=== PATIENT | female | born 1940 | race Caucasian/White ===

== ENCOUNTER 2018-02-11 20:29 | Inpatient (IN) ==
[2018-02-11] MEDS ORDERED: 0.9 % Sodium Chloride 1,000 ML IVC ONE (23:43)
[2018-02-11] MEDS ORDERED: 0.9 % Sodium Chloride 1,000 ML IVC SCH (23:45)
[2018-02-11] MEDS ORDERED: 0.9 % Sodium Chloride 1,000 ML ONE (23:58)
[2018-02-11] MEDS ORDERED: D5% in Water 1,000 ML IVC PRN (23:59)
[2018-02-11] MEDS ORDERED: Ondansetron 4 MG/2 ML VIAL IVP PRN (23:59)
[2018-02-11] MEDS ORDERED: Acetaminophen 325 MG TABLET PO PRN (23:59)
[2018-02-11] MEDS ORDERED: Dextrose Gel 15 GM/37.5 ML TUBE PO PRN ×2 (23:59)
[2018-02-11] MEDS ORDERED: Naloxone 0.4 MG/ML INJ IVP PRN (23:59)
[2018-02-11] MEDS ORDERED: *HR* Dextrose 50 % in Water (Syg) 50 ML SYRINGE IVP PRN (23:59)
--- NOTE | 2018-02-12 00:12 | Internal Med History&Physical ---
<Geovanni Barajas - Last Filed: 02/12/18 02:06> Date of Encounter: 02/12/18 Time of Encounter: 00:08 Internal Medicine - H&P: HPI Chief complaint: Abnormal labs Admitted From: Long-term Nursing Facility History of present illness: Ms. López is a 77 year old female with a PMH of recently diagnosed right upper lobe mass suspicious for bronchogenic carcinoma, Alzheimer's dementia, diet controlled diabetes mellitus type 2, COPD, CVA without residual deficits, hypertension, hyperlipidemia, and remote tobacco dependence who was transferred from a nursing facility secondary to severe hypercalcemia. Calcium level was 14.7 and repeat level was 14.2 prior to arrival. Patient reports associated nausea, constipation, and room spinning sensation. Last BM was 3 days ago and patient reports dysuria, urinary frequency, and urinary urgency. She reports intermittent SOB at rest and denies home oxygen dependence. Patient reports she was sent to SNF after recent hospitalization for right lung biopsy at [facility]. She states her daughter also has health issues and they have been taking care of each other since she moved in with her in July 2017 due to worsening Alzheimer's dementia. However, patient reports there are several other family members also living there and she is unable to return to her daughter's house due to the chaotic living situation. Past Med Surg Social Fam HX - Past Medical History Medical history: diabetes (diet controlled), hyperlipidemia, hypertension, kidney stones, other Additional medical history: Alzheimers, hypercalcemia, Mass in upper right lobe of lung, diverticulosis Psychiatric history: anxiety, panic disorder - Past Surgical History Surgical History: other Additional surgical history: Lung biopsy, right kidney removed - Social History Smoking Status: Former smoker (quit 40 years ago after smoking 23 years) Smokeless Tobacco Status: No Alcohol use: none Drug use: none Occupational status: retired Current living situation: ECF - Family History Father Living Status: Cause of : Metastatic cancer Hx Family Cancer: Yes ("All over") Mother Living Status: Hx Family Neurologic Disorders: Yes (CVA) Internal Medicine - H&P: Meds Aspirin [Adult Aspirin] 81 mg PO DAILY 01/25/18 [History] Atorvastatin [Lipitor] 40 mg PO HS 01/25/18 [History] Cyanocobalamin (Vitamin B-12) [B-12] 2,500 mcg SL DAILY 01/25/18 [History] Donepezil HCl [Aricept] 5 mg PO HS 01/25/18 [History] Metoprolol Tartrate [Lopressor] 25 mg PO DAILY 01/25/18 [History] Omeprazole [PriLOSEC] 20 mg PO BID 01/25/18 [History] ALPRAZolam [Xanax 0.5 MG Tablet] 0.5 mg PO BID PRN 02/11/18 [History] Cholecalciferol (Vitamin D3) [Vitamin D] 2 tab PO DAILY 02/11/18 [History] Ondansetron ODT [Zofran ODT] 4 mg SL Q6H PRN 02/11/18 [History] Potassium Chloride [Klor-Con 10] 10 meq PO DAILY 02/11/18 [History] 3 Allergy/AdvReac Type Severity Reaction Status Date / Time No Known Allergies Allergy Verified 01/25/18 19:31 All Systems PM: A 10-system review of systems was performed and is negative for pertinent findings except as documented above in the HPI. - Constitutional Constitutional: chills, fatigue, malaise, weakness, weight loss, no fever(s), no weight gain - EENT Eyes: no blurry vision, no diplopia Nose, mouth and throat: no dental pain ("I'm unable to afford dentures"), no sinus pain, no sore throat - Cardiovascular Cardiovascular ROS IM: dyspnea, dyspnea on exertion, no chest pain, no diaphoresis, no orthopnea, no palpitations - Respiratory Respiratory: cough (occasional), dyspnea, dyspnea on exertion, no hemoptysis, no wheezing, no chest congestion, no excessive phlegm production, no pain with cough - Gastrointestinal Gastrointestinal: constipation, nausea, no abdominal pain, no diarrhea, no heartburn, no hematemesis, no hematochezia, no melena, no vomiting - Genitourinary Genitourinary: dysuria, urinary frequency, urinary urgency, no hematuria - Musculoskeletal Musculoskeletal ROS IM: no arthralgias, no back pain, no numbness, no tingling - Integumentary Integumentary IM: no erythema, no rash, no skin ulcer - Neurological Neurological ROS: confusion, disequilibrium, dizziness, no focal weakness, no frequent falls, no headache(s), no numbness, no tremor(s) (chin), no weakness - Psychiatric Psychiatric: anxiety, panic attacks, no depression - Endocrine Endocrine IM: fatigue, no polydipsia, no polyphagia, no polyuria - Hematologic/Lymphatic Hematologic/Lymphatic: no easy bleeding, no easy bruising - Constitutional Vitals: Temp Pulse Resp BP Pulse Ox 99.4 F 69 18 151/77 100 02/11/18 23:26 02/11/18 23:26 02/11/18 23:26 02/11/18 23:26 02/11/18 23:26 General appearance: Present: cooperative, A&O X 3, pleasant, no acute distress, answers questions appropriately - Head Head exam: Present: atraumatic, normocephalic - Eye Eye exam: Present: PERRL, conjuntiva pink, sclera anicteric Pupils: Present: PERRL - ENT ENT exam: Present: mucous membranes moist, normal oropharynx - Expanded ENT Exam Teeth exam: Present: edentulous - Neck Neck exam general surgery: Present: supple, trachea midline. Absent: lymphadenopathy - Respiratory Respiratory exam: Present: CTAB. Absent: accessory muscle use, rales, rhonchi, wheezes - Cardiovascular Cardiovascular exam: Present: RRR, +S1, +S2. Absent: diastolic murmur, gallop, rubs, systolic murmur - GI/Abdominal GI/Abdominal exam: Present: guarding (voluntary), normal bowel sounds, soft, tenderness (RUQ/ RLQ), no peritoneal signs. Absent: distended - Extremities Exam Extremities exam: Present: normal capillary refill, normal inspection, warm, radial pulses palpable and symmetrical. Absent: calf tenderness, cyanotic, pedal edema - Back Exam Back exam: Present: normal inspection. Absent: paraspinal tenderness, tenderness - Neurological Exam Neurological exam: Present: CN II-XII intact, oriented X3, no focal deficits. Absent: pronater drift, facial droop, speech deficit - Expanded Neurological Exam Neurological exam expanded: Present: tremor (chin tremor at rest) Patient oriented to: Present: person, place, time Speech: Present: fluid speech Cranial Nerves: EOM's intact PM: Normal Sensory exam: lower extremity light touch: Normal, upper extremity light touch: Normal Neuro motor strength exam: LUE: 4, RUE: 4, LLE: 4, RLE: 4 Coma Scale Eye Opening: Spontaneous Coma Scale Motor Response: Obeys Commands Coma Scale Verbal Response: Oriented Coma Scale Total: 15 - Psychiatric Psychiatric exam: Present: anxious, normal affect - Skin Skin exam: Present: dry, intact, normal color, warm Internal Med - H&P Results - Pulse Oximetry Interpretation Digit-Finger O2 Sat by Pulse Oximetry: 100 (On room air) - Impressions XR/XR chest 1V portable IMPRESSION: 1. Atelectasis versus scarring within the right mid lung. 2. Faint density within the right upper lobe corresponds to pulmonary nodule recently identified on CT chest January 26, 2018. D/ / Zoltan Delvalle MD / Zoltan Delvalle MD Interpreting Provider: Zoltan Delvalle MD - Assessment and plan (1) Mass of upper lobe of right lung Current Visit: Yes Status: Acute Assessment and plan: Patient with recently diagnosed right upper lobe mass suspicious for bronchogenic carcinoma. Patient was sent to SNF after recent hospitalization for right lung biopsy at [facility]. CXR revealed atelectasis versus scarring within the right mid lung. Faint density within the right upper lobe corresponds to pulmonary nodule recently identified on CT chest 01/26/18. CT chest 01/26/18 revealed 2 cm lobular lesion in the right apex with no definite right hilar adenopathy. Indeterminate sub 6 mm right lower lobe subpleural pulmonary nodule. Right lung mass biopsy results records requested from [facility] Continue Duonebs and monitor SpO2 levels Oncology consulted Full code status (2) Hypercalcemia Current Visit: Yes Status: Acute Assessment and plan: Patient was transferred from a nursing facility secondary to severe hypercalcemia. Calcium level was 14.7 and repeat level was 14.2 prior to arrival. Ionized calcium level 1.81 PTH level 124.1 on 01/25/18 Repeat PTH level, PTHrP, Vitamin D levels pending Continue IVF Calcitonin 240units subQ and Zoledronic acid 4mg IV ordered Repeat calcium level q4h Oncology consulted (3) CHELITA (acute kidney injury) Current Visit: Yes Status: Acute Assessment and plan: SrCr level 2.41, baseline is around 0.76 Continue IVF Repeat BMP in AM Consider nephrology consult if CHELITA does not resolve with IV hydration (4) Urinary tract infection Current Visit: Yes Status: Acute Assessment and plan: UA reveals trace leukocyte estrase, moderate amorphous sediment Previous urine cultures from 01/25/18 and 02/05/18 were grossly contaminated and urine cultures were unable to be properly interpreted. Urine culture pending Continue Rocephin 1g IV daily (Day 1) Qualifiers: Urinary tract infection type: acute cystitis Hematuria presence: with hematuria Qualified Code(s): N30.01 - Acute cystitis with hematuria (5) Anemia Current Visit: Yes Status: Chronic Assessment and plan: HGB level 10.8, down from 12.5 on 01/25/18 CT abd/plv revealed severe sigmoid diverticulosis without diverticulitis. No signs of bleeding Continue monitoring Qualifiers: Anemia type: iron deficiency Iron deficiency anemia type: unspecified iron deficiency Qualified Code(s): D50.9 - Iron deficiency anemia, unspecified (6) Alzheimer's dementia Current Visit: Yes Status: Chronic Assessment and plan: patient moved in with her in July 2017 due to worsening Alzheimer's dementia. However, patient reports there are several other family members also living there and she is unable to return to her daughter's house due to the chaotic living situation. 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 Qualifiers: Alzheimer's disease onset: unspecified onset Dementia behavioral disturbance: without behavioral disturbance Qualified Code(s): G30.9 - Alzheimer's disease, unspecified; F02.80 - Dementia in other diseases classified elsewhere without behavioral disturbance (7) Anxiety and depression Current Visit: Yes Status: Chronic Assessment and plan: Continue home meds (8) 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 Current Visit: No Status: Chronic Assessment and plan: Continue monitoring (9) Vertigo Current Visit: Yes Status: Acute Assessment and plan: Patient reports room spinning sensation Emerson Meclizine TID prn (10) Hypertension Current Visit: No Status: Chronic Assessment and plan: Continue home meds Qualifiers: Hypertension type: essential hypertension Qualified Code(s): I10 - Essential (primary) hypertension (11) HLD (hyperlipidemia) Current Visit: No Status: Chronic Assessment and plan: Continue home meds Qualifiers: Hyperlipidemia type: unspecified Qualified Code(s): E78.5 - Hyperlipidemia , unspecified (12) COPD (chronic obstructive pulmonary disease) Current Visit: No Status: Chronic Assessment and plan: Not in acute exacerbation Continue Duonebs Qualifiers: COPD type: unspecified COPD Qualified Code(s): J44.9 - Chronic obstructive pulmonary disease, unspecified (13) DM type 2 (diabetes mellitus, type 2) Current Visit: No Status: Chronic Assessment and plan: Diet controlled DM Type 2 HGB a1c level 5.3 on 02/04/18 Accucheck ACHS Low dose SSI prn Continue ADA diet, mechanically altered diet due to edentulous status Qualifiers: Diabetes mellitus alf insulin use: without manager terminal use Diabetes mellitus complication status: without complication Qualified Code(s): E11.9 - Type 2 diabetes mellitus without complications (14) Constipation Current Visit: Yes Status: Acute Assessment and plan: Last BM 3 days ago Encourage ambulation Senna Plus ordered Qualifiers: Constipation type: unspecified constipation type Qualified Code(s): K59.00 - Constipation, unspecified (15) DVT prophylaxis Current Visit: Yes Status: Acute Assessment and plan: Heparin subQ TID - Time Spent With Patient Total time spent is greater than 50% in coordination of care (as documented) at patient's floor/unit and/or counseling patient: <Sharri Mack - Last Filed: 02/12/18 02:46> Date of Encounter: 02/12/18 Internal Medicine - H&P: HPI History of present illness: Ms. López is a 77 year old female All Systems PM: A 10-system review of systems was performed and is negative for pertinent findings except as documented above in the HPI. - Constitutional Vitals: Temp Pulse Resp BP Pulse Ox 99.4 F 69 18 151/77 100 02/11/18 23:26 02/11/18 23:26 02/11/18 23:26 02/11/18 23:26 02/11/18 23:26 - Attending Attestation The patient was seen and examined by me. She is a 77-year-old woman who presents with constipation, numbness, tingling, generalized malaise and is found to have a calcium level of 14.7 with elevated ionized calcium as well. She has a known lung mass which has been biopsied however the records are not available as of this moment. She is notably dehydrated as well. She is a rather poor historian. Physical exam is remarkable for generalized pallor and dry mucous membranes. She has acute kidney injury stage III. We will give aggressive IV fluid resuscitation, monitor calcium levels every 4 hours, administer 1 dose of calcitonin salmon at 4u/kg and zoledronic acid 4mg IVP for hypercalcemia likely related to lung malignancy; primary hyperparathyroidism is also on the differential. Ongoing calcium monitoring is advised given the current aggressive treatment protocol. 1,25 and 25-OH Vit D levels, PTH and PTHrP levels should be checked. She will benefit from oncology evaluation. She is also anemic with no signs of GI bleeding at this time. Dementia renders her poor historian. Long-term prognosis is guarded. Rest of care per resident's note. - Time Spent With Patient Total time spent is greater than 50% in coordination of care (as documented) at patient's floor/unit and/or counseling patient:
[2018-02-12] MEDS: Insulin LISPRO 300 UNITS/3 ML VIAL SQ SCH ×5 (01:50→21:25)
[2018-02-12] MEDS: Sennosides/Docusate Sodium TABLET PO SCH ×3 (02:00→21:01)
[2018-02-12] MEDS ORDERED: Zoledronic Acid (Zometa) 4 MG in 0.9 % Sodium Chloride 100 ML IV ONE (02:15)
[2018-02-12] MEDS ORDERED: Calcitonin-Salmon, Synthetic 400 UNIT/2 ML VIAL SQ ONE (02:16)
[2018-02-12] MEDS: 0.9 % Sodium Chloride 1,000 ML IVC SCH ×2 (03:10→11:51)
[2018-02-12] MEDS: Ipratropium/Albuterol Neb 3 ML IH SCH ×4 (05:23→21:20)
[2018-02-12] MEDS: *HR* Heparin 5,000 UNIT/ML VIAL SQ SCH ×3 (06:12→21:02)
[2018-02-12 06:58] LABS: Hematocrit 30.1 % (35.3-44.9); Mean Corpuscular HGB Conc 33.2 g/dL (31.6-35.5); Mean Corpuscular Hemoglobin 30.2 pg (28.0-33.3); Mean Corpuscular Volume 90.9 fL (83.0-100.0); Mean Platelet Volume 10.2 fL (9.4-12.4); Platelet Count 204 K/mcL (140-400); Red Blood Count 3.31 M/mcL (3.82-4.97); Red Cell Distribution Width 13.2 % (11.5-14.5)
[2018-02-12 07:08] LABS: Prothrombin Time 10.9 Seconds (9.4-12.1)
[2018-02-12 07:10] LABS: Activated Partial Thrombo Time 28.9 Seconds (26.0-36.0)
[2018-02-12 07:17] LABS: Albumin 3.3 g/dL (3.5-5.7); Calcium 11.3 mg/dL (8.6-10.3); Phosphorous 3.7 mg/dL (2.7-4.5); Potassium 4.2 mEq/L (3.5-5.1)
[2018-02-12] MEDS: Cyanocobalamin (B-12) 1,000 MCG TABLET PO SCH (08:06)
[2018-02-12] MEDS: Cholecalciferol (D-3) 1,000 UNIT TABLET PO SCH (08:06)
[2018-02-12] MEDS: Aspirin Enteric Coated 81 MG Tablet PO SCH (08:06)
[2018-02-12] MEDS: cefTRIAXone 1,000 MG in Water for inj. (sterile) 20 ML 10 ML IVP SCH (08:07)
[2018-02-12] MEDS: ALPRAZolam 0.5 MG TABLET PO PRN ×2 (08:10→21:01)
--- NOTE | 2018-02-12 13:38 | Oncology Inp Consult Note ---
Date of Encounter: 02/12/18 Time of Encounter: 13:00 Assessment and Plan (1) Hyperparathyroidism Status: Acute Assessment and plan: She has acute on chronic hypercalcemia related to hyperparathyroidism. This is not secondary to her malignancy given her elevated PTH. Would recommend consultation with endocrinology/ENT for consideration of either bisphosphonate- based therapy, cinacalcet or parathyroidectomy. Given her comorbidities, perhaps a medical approach may be prudent for the time being. (2) Mass of upper lobe of right lung Status: Acute Assessment and plan: She appears to have an early-stage probable lung cancer. We will establish follow-up as an outpatient. At that juncture, we will recommend PET/CT imaging for staging purposes and will likely pursue SBRT as primary therapy if she is found to have localized disease. I will setup an office appointment with me later this coming week. We will otherwise sign off. Please do not hesitate to call with any concerns or questions. - Data of Consult Patient: new to practice Requesting Physician: Rj Stewart Primary Care Provider: Geovanni Payton MD - Consult Narrative Reason for consult: 1245 History of present illness: Ms. López is a 77 year old female with a newly diagnosed right apical lung nodule concerning for bronchogenic carcinoma. Patient underwent CT imaging of the chest, abdomen and pelvis 01/26/2018 which revealed a 2 similar right apical lung mass. The patient was transferred [facility] where biopsy was performed per her recollection. She does not know the results from this biopsy. We do not have records for review. She is discharged to a correction facility for rehabilitation and possibly long-term placement given social issues at her home. She re-presented to the emergency department last night with hypercalcemia at 14.7 with associated nausea, constipation, and vertigo. Last BM was 3 days ago. She has been hydrated overnight with improvement of her calcium. PTH is elevated consistent with hypercalcemia of hyperparathyroidism. We are asked to consult and aid in management of the lung mass. Past Med Surg Social Fam HX - Past Medical History Medical history: diabetes (diet controlled), hyperlipidemia, hypertension, kidney stones, other Additional medical history: Alzheimers, hypercalcemia, Mass in upper right lobe of lung, diverticulosis Psychiatric history: anxiety, panic disorder - Past Surgical History Surgical History: other Additional surgical history: Lung biopsy, right kidney removed - Social History Smoking Status: Former smoker (quit 40 years ago after smoking 23 years) Smokeless Tobacco Status: No Alcohol use: none Drug use: none - Family History Father Living Status: Cause of : Metastatic cancer Hx Family Cancer: Yes ("All over") Mother Living Status: Hx Family Neurologic Disorders: Yes (CVA) Medications and Allergies Aspirin [Adult Aspirin] 81 mg PO DAILY 01/25/18 [History] Atorvastatin [Lipitor] 40 mg PO HS 01/25/18 [History] Cyanocobalamin (Vitamin B-12) [B-12] 2,500 mcg SL DAILY 01/25/18 [History] Donepezil HCl [Aricept] 5 mg PO HS 01/25/18 [History] Metoprolol Tartrate [Lopressor] 25 mg PO DAILY 01/25/18 [History] Omeprazole [PriLOSEC] 20 mg PO BID 01/25/18 [History] ALPRAZolam [Xanax 0.5 MG Tablet] 0.5 mg PO BID PRN 02/11/18 [History] Cholecalciferol (Vitamin D3) [Vitamin D] 2 tab PO DAILY 02/11/18 [History] Ondansetron ODT [Zofran ODT] 4 mg SL Q6H PRN 02/11/18 [History] Potassium Chloride [Klor-Con 10] 10 meq PO DAILY 02/11/18 [History] 3 Allergy/AdvReac Type Severity Reaction Status Date / Time No Known Allergies Allergy Verified 01/25/18 19:31 All systems: reviewed and no additional remarkable complaints except as stated Constitutional: Present: anorexia, daytime sleepiness, fatigue, weight loss Eyes: Present: blurry vision Ears: Present: as per HPI Nose, mouth and throat: Present: disequilibrium, dry mouth Cardiovascular: Present: as per HPI Respiratory: Present: dyspnea on exertion Gastrointestinal: Present: abdominal pain, bloating, constipation Musculoskeletal: Present: arthralgias, muscle cramps Neurological: Present: abnormal gait, disequilibrium Oncology - Exam - Constitutional Vitals: Temp Pulse Resp BP Pulse Ox 99.2 F 59 14 133/71 100 02/12/18 11:11 02/12/18 11:11 02/12/18 11:11 02/12/18 11:11 02/12/18 11:11 General appearance: cooperative, no acute distress - Head Head exam: Present: atraumatic, normal inspection, normocephalic - Eye Eye exam: Present: normal appearance, conjuntiva pink, sclera anicteric Pupils: Present: PERRL - ENT ENT exam: Present: mucous membranes moist, normal oropharynx - Neck Neck exam: Present: full ROM, normal inspection - Respiratory Respiratory exam: Present: CTAB - Cardiovascular Cardiovascular exam: Present: RRR, systolic murmur - GI/Abdominal GI/Abdominal exam: Present: normal bowel sounds, soft - Extremities Exam Extremities exam: Present: normal inspection - Neurological Exam Neurological exam: Present: alert, CN II-XII intact, no focal deficits Oncology - Results Labs: 3 02/12/18 02/12/18 02/12/18 10:49 06:30 06:30 WBC RBC Hgb Hct MCV MCH MCHC RDW Plt Count MPV PT 10.9 INR 1.0 APTT 28.9 Sodium 138 Potassium 4.2 Chloride 110 H Carbon Dioxide 24 BUN 34 H Creatinine 2.20 H Est GFR ( Amer) 26 L Est GFR (Non-Af Amer) 22 L BUN/Creatinine Ratio 15 Glucose 103 Calculated Osmolality 294 Calcium 11.5 H 11.3 H Phosphorus 3.7 Albumin 3.3 L PTH Intact 3 02/12/18 02/12/18 02/12/18 06:30 02:32 02:32 WBC 4.7 RBC 3.31 L Hgb 10.0 L Hct 30.1 L MCV 90.9 MCH 30.2 MCHC 33.2 RDW 13.2 Plt Count 204 MPV 10.2 PT INR APTT Sodium Potassium Chloride Carbon Dioxide BUN Creatinine Est GFR ( Amer) Est GFR (Non-Af Amer) BUN/Creatinine Ratio Glucose Calculated Osmolality Calcium 11.7 H Phosphorus Albumin PTH Intact 146.[address] OF THE ABDOMEN AND PELVIS WITHOUT CONTRAST; CT OF THE CHEST WITHOUT CONTRAST 01/26/2018 3:02 pm FINDINGS: Chest: Mediastinum: No mass or adenopathy. Trace pericardial fluid. Normal size of heart and thoracic aorta. Calcified right precarinal lymph nodes. Lungs/pleura: Slight bibasilar atelectasis. Less than 6 mm subpleural nodule laterally and inferiorly in the right lower lobe. Trace left pleural effusion. Small amount of ground-glass opacity in the left lower lobe and left upper lobe worrisome for pneumonia. Lobular noncalcified pulmonary nodule posteriorly in the right apex measuring 16.1 x 12.4 mm on axial image 20 and 20.8 mm in height on coronal image 65. Few adjacent daughter nodules. Strands in density extend to the posterior pleural surface. Slight bullous changes. Soft Tissues/Bones: No destructive bony lesion. Mild old appearing compression fracture of T11. No soft tissue abnormality. No worrisome breast lesion. No axillary adenopathy. Abdomen/Pelvis: Organs: Liver is normal in appearance without worrisome focal lesion. Small hepatic cyst anteriorly in the subcapsular lateral segment measuring less than 8 mm in size. Several small calcified gallstones without findings of acute inflammation. Right nephrectomy surgically absent. Left kidney appears normal. 1 cm fatty lesion in the upper pole of the remaining left kidney consistent with angiomyolipoma. Other abdominal organs appear normal. Right adrenal gland remains. GI/Bowel: Large amount of ingested food in the stomach. Severe sigmoid diverticulosis without diverticulitis. Scattered diverticula in the left colon. Normal appendix and terminal ileum. Pelvis: Uterus remains and appears normal for age. Normal appearance of the urinary bladder. Trace amount of free pelvic fluid is seen bilaterally. No adenopathy. Peritoneum/Retroperitoneum: No mass, adenopathy, or ascites. Normal size of the aorta. Bones/Soft Tissues: No destructive bony lesion or significant soft tissue abnormality. CT/CT chest wo con IMPRESSION: 2 cm lobular lesion in the right apex having the appearance of a bronchogenic carcinoma. No definite right hilar adenopathy. No pleural effusion. Ground-glass opacity within the left upper and lower lobes worrisome for pneumonia. Trace left pleural effusion. Indeterminate sub 6 mm right lower lobe subpleural pulmonary nodule. No worrisome finding in the remaining left kidney or urinary bladder. 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 Cholelithiasis without finding of acute cholecystitis. Severe sigmoid diverticulosis without diverticulitis. Trace amount of free pelvic fluid. Consult Discharge Plan - Plan Referrals: Geovanni Payton MD [Primary Care Provider] -
--- NOTE | 2018-02-12 19:42 | Event Note ---
Date of Encounter: 02/12/18 Time of Encounter: 11:00 Patient seen and evaluated by nocturnalist earlier this morning and also by myself Patient's hypercalcemia correcting with IV fluids Recommendations for ENT consult due to acute on chronic hypercalcemia related to her hyperparathyroidism Hematology/oncology consulted for probable lung cancer with recommendations for follow-up and workup including PET/CT imaging as an outpatient
[2018-02-13 03:31] LABS: Bilirubin,Urine Negative (Negative); Blood,Urine Negative (Negative); Clarity,Urine Clear (Clear); Color,Urine Yellow (Yellow); Glucose,Urine (UA) Normal (Normal); Ketones,Urine Negative (Negative); Leukocyte Esterase,Urine Negative (Negative); Nitrite,Urine Negative (Negative); PH,Urine 6.5 pH Units (5.0-8.0); Protein,Urine Negative (Neg-Trace); Specific Gravity,Urine 1.012 (1.010-1.025); Urobilinogen,Urine Normal (Normal)
[2018-02-13] MEDS: Ipratropium/Albuterol Neb 3 ML IH SCH ×2 (03:56→10:50)
[2018-02-13] MEDS: *HR* Heparin 5,000 UNIT/ML VIAL SQ SCH ×3 (05:21→21:42)
[2018-02-13 05:28] LABS: Hemoglobin 9.5 g/dL (11.5-15.4); Mean Corpuscular HGB Conc 32.8 g/dL (31.6-35.5); Mean Corpuscular Hemoglobin 30.2 pg (28.0-33.3); Mean Corpuscular Volume 92.1 fL (83.0-100.0); Mean Platelet Volume 9.8 fL (9.4-12.4); Platelet Count 174 K/mcL (140-400); Red Blood Count 3.15 M/mcL (3.82-4.97); Red Cell Distribution Width 13.3 % (11.5-14.5)
[2018-02-13 06:34] LABS: Calcium 11.7 mg/dL (8.6-10.3); Potassium 3.8 mEq/L (3.5-5.1)
[2018-02-13] MEDS: Insulin LISPRO 300 UNITS/3 ML VIAL SQ SCH ×4 (08:01→21:33)
[2018-02-13] MEDS: ALPRAZolam 0.5 MG TABLET PO PRN ×2 (08:02→21:38)
[2018-02-13] MEDS: Cholecalciferol (D-3) 1,000 UNIT TABLET PO SCH (08:02)
[2018-02-13] MEDS: Aspirin Enteric Coated 81 MG Tablet PO SCH (08:02)
[2018-02-13] MEDS: Cyanocobalamin (B-12) 1,000 MCG TABLET PO SCH (08:02)
[2018-02-13] MEDS: Sennosides/Docusate Sodium TABLET PO SCH ×2 (08:02→21:37)
[2018-02-13] MEDS: cefTRIAXone 1,000 MG in Water for inj. (sterile) 20 ML 10 ML IVP SCH (08:04)
--- NOTE | 2018-02-13 09:44 | Internal Med Progress Note ---
Date of Encounter: 02/13/18 Time of Encounter: 11:00 - Assessment and plan (1) Hypercalcemia Current Visit: Yes Status: Acute Assessment and plan: Patient was transferred from a nursing facility secondary to severe hypercalcemia. Calcium level 11.7 this morning from 12.3 yesterday and 14.7 on admission PTH level 124.1 on 01/25/18 Will restart IV fluids (2) Mass of upper lobe of right lung Current Visit: Yes Status: Acute Assessment and plan: Patient with recently diagnosed right upper lobe mass suspicious for bronchogenic carcinoma. Patient was sent to [facility] after recent hospitalization for right lung biopsy at [place]. CXR revealed atelectasis versus scarring within the right mid lung. Faint density within the right upper lobe corresponds to pulmonary nodule recently identified on CT chest 01/26/18. CT chest 01/26/18 revealed 2 cm lobular lesion in the right apex with no definite right hilar adenopathy. Indeterminate sub 6 mm right lower lobe subpleural pulmonary nodule. Right lung mass biopsy results records requested from [place] Continue Duonebs and monitor SpO2 levels Oncology consulted with recommendations for PET/CT imaging (3) CHELITA (acute kidney injury) Current Visit: Yes Status: Acute Assessment and plan: SrCr level 2.26, baseline is around 0.76 Will restart IV fluids and monitor creatinine Will continue to monitor renal function (4) Urinary tract infection Current Visit: Yes Status: Acute Assessment and plan: Urinalysis is negative so we will discontinue IV antibiotics Qualifiers: Urinary tract infection type: acute cystitis Hematuria presence: with hematuria Qualified Code(s): N30.01 - Acute cystitis with hematuria (5) DM type 2 (diabetes mellitus, type 2) Current Visit: No Status: Chronic Assessment and plan: Diet controlled DM Type 2 HGB a1c level 5.3 on 02/04/18 Accucheck ACHS Low dose SSI prn Continue ADA diet, mechanically altered diet due to edentulous status Qualifiers: 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 use: without half-way use Diabetes mellitus complication status: without complication Qualified Code(s): E11.9 - Type 2 diabetes mellitus without complications (6) Hypertension Current Visit: No Status: Chronic Assessment and plan: Continue home meds Qualifiers: Hypertension type: essential hypertension Qualified Code(s): I10 - Essential (primary) hypertension (7) Anxiety and depression Current Visit: Yes Status: Chronic Assessment and plan: Continue home meds (8) Alzheimer's dementia Current Visit: Yes Status: Chronic Assessment and plan: patient moved in with her in July 2017 due to worsening Alzheimer's dementia. However, patient reports there are several other family members also living there and she is unable to return to her daughter's house due to the chaotic living situation. chamber worker consulted Qualifiers: Alzheimer's disease onset: unspecified onset Dementia behavioral disturbance: without behavioral disturbance Qualified Code(s): G30.9 - Alzheimer's disease, unspecified; F02.80 - Dementia in other diseases classified elsewhere without behavioral disturbance (9) COPD (chronic obstructive pulmonary disease) Current Visit: No Status: Chronic Assessment and plan: Not in acute exacerbation Continue Duonebs Qualifiers: COPD type: unspecified COPD Qualified Code(s): J44.9 - Chronic obstructive pulmonary disease, unspecified (10) 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 No signs of bleeding Continue monitoring Qualifiers: Anemia type: iron deficiency Iron deficiency anemia type: unspecified iron deficiency Qualified Code(s): D50.9 - Iron deficiency anemia, unspecified (13) Vertigo Current Visit: Yes Status: Acute Assessment and plan: Patient reports room spinning sensation [place] Meclizine TID prn (14) DVT prophylaxis Current Visit: Yes Status: Acute Assessment and plan: Heparin subQ TID - Time Spent With Patient Total time spent is greater than 50% in coordination of care (as documented) at patient's floor/unit and/or counseling patient: - Subjective Interval history: Patient with improved hypercalcemia but still not within normal limits. Patient's acute renal failure without improvement after IV fluids discontinued - Constitutional Vitals: Temp Pulse Resp BP Pulse Ox 98.1 F 77 16 96/54 99 02/13/18 07:33 02/13/18 07:33 02/13/18 07:33 02/13/18 07:33 02/13/18 07:33 General appearance: Present: cooperative, A&O X 3, pleasant, no acute distress, answers questions appropriately - Respiratory Respiratory exam: Present: CTAB. Absent: accessory muscle use, rales, rhonchi, wheezes - Cardiovascular Cardiovascular exam: Present: RRR, +S1, +S2. Absent: diastolic murmur, gallop, rubs, systolic murmur - Psychiatric Psychiatric exam: Present: normal mood - Skin Skin exam: Present: normal color Internal Medicine: Result - Labs CBC & Chem 7: 02/13/18 05:13 02/13/18 05:13 Labs: Short CBC 02/13/18 Range/Units 05:13 WBC 5.2 (4.3-11.1) K/mcL Hgb 9.5 L (11.5-15.4) g/dL Hct 29.0 L (35.3-44.9) % Plt Count 174 (140-400) K/mcL BMP 02/12/18 02/12/18 02/12/18 10:49 15:42 20:31 Sodium Potassium Chloride Carbon Dioxide BUN Creatinine Glucose Calcium 11.5 H 11.7 H 11.6 H 02/12/18 02/13/18 23:08 05:13 Sodium 140 Potassium 3.8 Chloride 110 H Carbon Dioxide 23 BUN 31 H Creatinine 2.26 H Glucose 125 H Calcium 12.3 H 11.7 H Urine 02/13/18 Range/Units 03:21 Urine Color Yellow (Yellow) Urine Clarity Clear (Clear) Urine pH 6.5 (5.0-8.0) pH Units Ur Specific [place] 1.012 (1.010-1.025) Urine Protein Negative (Neg-Trace) mg/dL Urine Glucose (UA) Normal (Normal) mg/dL - ABG Interpretation ABG results: PT/INR, D-dimer PT 10.9 Seconds (9.4-12.1) 02/12/18 06:30 Consult Discharge Plan - Plan Referrals: Geovanni Payton MD [Primary Care Provider] -
[2018-02-13] MEDS ORDERED: Ipratropium/Albuterol Neb 3 ML IH PRN (15:24)
[2018-02-13] MEDS: 0.9 % Sodium Chloride 1,000 ML IVC SCH (19:33)
[2018-02-14] MEDS: *HR* Heparin 5,000 UNIT/ML VIAL SQ SCH ×3 (06:23→20:52)
[2018-02-14] MEDS: Insulin LISPRO 300 UNITS/3 ML VIAL SQ SCH ×4 (08:31→20:51)
[2018-02-14] MEDS: Aspirin Enteric Coated 81 MG Tablet PO SCH (08:48)
[2018-02-14] MEDS: 0.9 % Sodium Chloride 1,000 ML IVC SCH ×2 (08:49→22:25)
[2018-02-14] MEDS: Cholecalciferol (D-3) 1,000 UNIT TABLET PO SCH (09:53)
[2018-02-14] MEDS: Cyanocobalamin (B-12) 1,000 MCG TABLET PO SCH (09:53)
[2018-02-14 11:15] LABS: Basophils % 0.3 %; Eosinophils # 0.3 K/mcL (0.0-0.6); Eosinophils % 4.7 %; Hemoglobin 9.3 g/dL (11.5-15.4); Immature Granulocytes % 0.3 % (0-4); Lymphocytes # 0.6 K/mcL (0.6-4.6); Mean Corpuscular HGB Conc 33.2 g/dL (31.6-35.5); Mean Corpuscular Hemoglobin 30.4 pg (28.0-33.3); Mean Corpuscular Volume 91.5 fL (83.0-100.0); Mean Platelet Volume 10.3 fL (9.4-12.4); Monocytes # 0.4 K/mcL (0.0-1.3); Neutrophils # 4.4 K/mcL (1.6-8.9); Platelet Count 191 K/mcL (140-400); Red Blood Count 3.06 M/mcL (3.82-4.97); Red Cell Distribution Width 13.2 % (11.5-14.5); Segmented Neutrophils % 76.7 %
[2018-02-14 11:18] LABS: Calcium 11.1 mg/dL (8.6-10.3); Potassium 4.4 mEq/L (3.5-5.1)
[2018-02-14] MEDS: Sennosides/Docusate Sodium TABLET PO SCH ×2 (12:16→20:54)
--- NOTE | 2018-02-14 21:08 | Internal Med Progress Note ---
Date of Encounter: 02/14/18 Time of Encounter: 11:00 - Assessment and plan (1) Hypercalcemia Current Visit: Yes Status: Acute Assessment and plan: Patient was transferred from a nursing facility secondary to severe hypercalcemia. Calcium level 11.1 today and 14.7 on admission PTH level 124.1 on 01/25/18 Continue IV fluids (2) Mass of upper lobe of right lung Current Visit: Yes Status: Acute Assessment and plan: Patient with recently diagnosed right upper lobe mass suspicious for bronchogenic carcinoma. Patient was sent to SNF after recent hospitalization for right lung biopsy at [place]. CXR revealed atelectasis versus scarring within the right mid lung. Faint density within the right upper lobe corresponds to pulmonary nodule recently identified on CT chest 01/26/18. CT chest 01/26/18 revealed 2 cm lobular lesion in the right apex with no definite right hilar adenopathy. Indeterminate sub 6 mm right lower lobe subpleural pulmonary nodule. Right lung mass biopsy results records requested from [place] Continue Duonebs and monitor SpO2 levels Oncology consulted with recommendations for PET/CT imaging (3) CHELITA (acute kidney injury) Current Visit: Yes Status: Acute Assessment and plan: SrCr level 1.97, baseline is around 0.76 Will restart IV fluids and monitor creatinine Will continue to monitor renal function (4) Urinary tract infection Current Visit: Yes Status: Acute Assessment and plan: Urinalysis is negative so we will discontinue IV antibiotics Qualifiers: Urinary tract infection type: acute cystitis Hematuria presence: with hematuria Qualified Code(s): N30.01 - Acute cystitis with hematuria (5) DM type 2 (diabetes mellitus, type 2) Current Visit: No Status: Chronic Assessment and plan: Diet controlled DM Type 2 HGB a1c level 5.3 on 02/04/18 Accucheck ACHS Low dose SSI prn Continue ADA diet, mechanically altered diet due to edentulous status Qualifiers: Diabetes mellitus custodial insulin use: without long term care administrator use Diabetes mellitus complication status: without complication Qualified Code(s): E11.9 - Type 2 diabetes mellitus without complications (6) Hypertension Current Visit: No Status: Chronic Assessment and plan: Continue home meds Qualifiers: Hypertension type: essential hypertension Qualified Code(s): I10 - Essential (primary) hypertension (7) Anxiety and depression Current Visit: Yes Status: Chronic Assessment and plan: Continue home meds (8) Alzheimer's dementia Current Visit: Yes Status: Chronic Assessment and plan: patient moved in with her in July 2017 due to worsening Alzheimer's dementia. However, patient reports there are several other family members also living there and she is unable to return to her daughter's house due to the chaotic living situation. spray worker consulted Qualifiers: Alzheimer's disease onset: unspecified onset Dementia behavioral disturbance: without behavioral disturbance Qualified Code(s): G30.9 - Alzheimer's disease, unspecified; F02.80 - Dementia in other diseases classified elsewhere without behavioral disturbance (9) COPD (chronic obstructive pulmonary disease) Current Visit: No Status: Chronic Assessment and plan: Not in acute exacerbation Continue Duonebs Qualifiers: COPD type: unspecified COPD Qualified Code(s): J44.9 - Chronic obstructive pulmonary disease, unspecified (10) 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 No signs of bleeding Continue monitoring Qualifiers: Anemia type: iron deficiency Iron deficiency anemia type: unspecified iron deficiency Qualified Code(s): D50.9 - Iron deficiency anemia, unspecified (13) Vertigo Current Visit: Yes Status: Acute Assessment and plan: Patient reports room spinning sensation [place] Meclizine TID prn (14) DVT prophylaxis Current Visit: Yes Status: Acute Assessment and plan: Heparin subQ TID - Time Spent With Patient Total time spent is greater than 50% in coordination of care (as documented) at patient's floor/unit and/or counseling patient: - Subjective Interval history: Patient with improved hypercalcemia but still not within normal limits. Patient's acute renal failure improving with IV fluids - Constitutional Vitals: Temp Pulse Resp BP Pulse Ox 98.9 F 78 15 138/68 97 02/14/18 20:06 02/14/18 20:06 02/14/18 20:06 02/14/18 20:06 02/14/18 20:06 General appearance: Present: cooperative, A&O X 3, pleasant, no acute distress, answers questions appropriately - Respiratory Respiratory exam: Present: CTAB. Absent: accessory muscle use, rales, rhonchi, wheezes - Cardiovascular Cardiovascular exam: Present: RRR, +S1, +S2. Absent: diastolic murmur, gallop, rubs, systolic murmur - GI/Abdominal GI/Abdominal exam: Present: soft - Extremities Exam Extremities exam: Present: pedal edema - Skin Skin exam: Present: normal color Internal Medicine: Result - Labs CBC & Chem 7: 02/14/18 10:48 02/14/18 10:48 Labs: Short CBC 02/14/18 Range/Units 10:48 WBC 5.7 (4.3-11.1) K/mcL Hgb 9.3 L (11.5-15.4) g/dL Hct 28.0 L (35.3-44.9) % Plt Count 191 (140-400) K/mcL Neutrophils # 4.4 (1.6-8.9) K/mcL BMP 02/14/18 10:48 Sodium 138 Potassium 4.4 Chloride 111 H Carbon Dioxide 23 BUN 25 H Creatinine 1.97 H Glucose 96 Calcium 11.1 H - ABG Interpretation ABG results: PT/INR, D-dimer PT 10.9 Seconds (9.4-12.1) 02/12/18 06:30 Consult Discharge Plan - Plan Referrals: Geovanni Payton MD [Primary Care Provider] -
[2018-02-15] MEDS: *HR* Heparin 5,000 UNIT/ML VIAL SQ SCH ×3 (05:10→19:54)
[2018-02-15] MEDS: Insulin LISPRO 300 UNITS/3 ML VIAL SQ SCH ×4 (07:39→20:49)
[2018-02-15 09:21] LABS: Calcium 10.6 mg/dL (8.6-10.3); Potassium 3.8 mEq/L (3.5-5.1)
[2018-02-15] MEDS: Aspirin Enteric Coated 81 MG Tablet PO SCH (10:08)
[2018-02-15] MEDS: Sennosides/Docusate Sodium TABLET PO SCH ×2 (10:12→19:54)
[2018-02-15] MEDS: 0.9 % Sodium Chloride 1,000 ML IVC SCH (11:55)
[2018-02-15] MEDS: Cholecalciferol (D-3) 1,000 UNIT TABLET PO SCH (11:55)
[2018-02-15] MEDS: Cyanocobalamin (B-12) 1,000 MCG TABLET PO SCH (11:55)
--- NOTE | 2018-02-15 15:36 | Internal Med Progress Note ---
Date of Encounter: 02/15/18 Time of Encounter: 12:20 - Assessment and plan (1) CHELITA (acute kidney injury) Current Visit: Yes Status: Acute Assessment and plan: Improving. Likely due to dehydration and medications. Creatinine 1.6 today. Continue gentle IV hydration. (2) Hypercalcemia Current Visit: Yes Status: Acute Assessment and plan: PTH elevated. PTH related peptide pending. Patient's calcium levels have improved. We will stop vitamin D. Follow up outpatient. Will make referral to endocrinology. (3) Urinary tract infection Current Visit: Yes Status: Ruled-out Assessment and plan: Initially suspected of Possible acute cystitis. However urinalysis and urine culture have been negative so far. No further indications for antibiotics. Qualifiers: Urinary tract infection type: acute cystitis Hematuria presence: with hematuria Qualified Code(s): N30.01 - Acute cystitis with hematuria (4) DM type 2 (diabetes mellitus, type 2) Current Visit: Yes Status: Chronic Assessment and plan: Well controlled. 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 Continue metoprolol. If persistently elevated today, will increase metoprolol dosage to twice daily tomorrow. Qualifiers: Hypertension type: essential hypertension Qualified Code(s): I10 - Essential (primary) hypertension (6) Anxiety and depression Current Visit: Yes Status: Chronic Assessment and plan: Continue home medications. (7) Mass of upper lobe of right lung Current Visit: Yes Status: Acute Assessment and plan: follow-up with oncology as outpatient. (8) Alzheimer's dementia Current Visit: Yes Status: Chronic Assessment and plan: No signs of acute delirium. Continue Aricept Qualifiers: Alzheimer's disease onset: unspecified onset Dementia behavioral disturbance: without behavioral disturbance Qualified Code(s): G30.9 - Alzheimer's disease, unspecified; F02.80 - Dementia in other diseases classified elsewhere without behavioral disturbance (9) COPD (chronic obstructive pulmonary disease) Current Visit: Yes Status: Chronic Assessment and plan: Use bronchodilators as needed. Qualifiers: COPD type: unspecified COPD Qualified Code(s): J44.9 - Chronic obstructive pulmonary disease, unspecified (10) 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 Current Visit: No Status: Chronic (11) HLD (hyperlipidemia) Current Visit: Yes Status: Chronic Assessment and plan: Continue atorvastatin Qualifiers: Hyperlipidemia type: mixed hyperlipidemia Qualified Code(s): E78.2 - Mixed hyperlipidemia (12) Anemia Current Visit: Yes Status: Chronic Assessment and plan: Stable hemoglobin levels. Qualifiers: Anemia type: iron deficiency Iron deficiency anemia type: unspecified iron deficiency Qualified Code(s): D50.9 - Iron deficiency anemia, unspecified (13) Vertigo Current Visit: Yes Status: Acute Assessment and plan: On meclizine as needed. Currently does not report dizziness. PTOT consult and for evaluation. Per the recommendations, patient would benefit from SNF placement. (14) DVT prophylaxis Current Visit: Yes Status: Acute Assessment and plan: On subcutaneous heparin - Time Spent With Patient Total time spent is greater than 50% in coordination of care (as documented) at patient's floor/unit and/or counseling patient: - Subjective Interval history: Patient is awake and alert. No new complaints at this time. She is only concerned about the multiple monitors that keep beeping. No chest pain or palpitations. No dizziness or lightheadedness. - Constitutional Vitals: Temp Pulse Resp BP Pulse Ox 99.0 F 80 16 162/78 99 02/15/18 11:28 02/15/18 11:28 02/15/18 11:28 02/15/18 11:28 02/15/18 11:28 General appearance: Present: cooperative, A&O X 3, pleasant, no acute distress, answers questions appropriately - Respiratory Respiratory exam: Present: CTAB. Absent: accessory muscle use, rales, rhonchi, wheezes - Cardiovascular Cardiovascular exam: Present: RRR, +S1, +S2. Absent: diastolic murmur, gallop, rubs, systolic murmur - GI/Abdominal GI/Abdominal exam: Present: normal bowel sounds, soft, no peritoneal signs. Absent: distended, tenderness - Extremities Exam Extremities exam: Present: warm, radial pulses palpable and symmetrical. Absent : calf tenderness, cyanotic, pedal edema Internal Medicine: Result - Labs CBC & Chem 7: 02/14/18 10:48 02/15/18 09:00 Labs: BMP 02/15/18 02/15/18 04:59 09:00 Sodium 137 Potassium 3.8 Chloride 111 H Carbon Dioxide 21 L BUN 18 Creatinine 1.64 H Glucose 135 H Calcium 10.7 H 10.6 H - ABG Interpretation ABG results: PT/INR, D-dimer PT 10.9 Seconds (9.4-12.1) 02/12/18 06:30 Consult Discharge Plan - Plan Referrals: Geovanni Payton MD [Primary Care Provider] -
[2018-02-15] MEDS: Ringers Solution, Lactated 1,000 ML IVC SCH (16:08)
[2018-02-16 04:54] LABS: Basophils % 0.4 %; Eosinophils # 0.1 K/mcL (0.0-0.6); Eosinophils % 2.6 %; Hemoglobin 10.6 g/dL (11.5-15.4); Immature Granulocytes % 0.2 % (0-4); Lymphocytes # 0.9 K/mcL (0.6-4.6); Lymphocytes % 17.1 %; Mean Corpuscular HGB Conc 34.2 g/dL (31.6-35.5); Mean Corpuscular Hemoglobin 30.1 pg (28.0-33.3); Mean Corpuscular Volume 88.1 fL (83.0-100.0); Mean Platelet Volume 10.3 fL (9.4-12.4); Monocytes # 0.3 K/mcL (0.0-1.3); Monocytes % 6.5 %; Neutrophils # 3.7 K/mcL (1.6-8.9); Platelet Count 211 K/mcL (140-400); Red Blood Count 3.52 M/mcL (3.82-4.97); Segmented Neutrophils % 73.2 %
[2018-02-16 04:58] LABS: Calcium 10.4 mg/dL (8.6-10.3); Potassium 3.6 mEq/L (3.5-5.1)
[2018-02-16] MEDS: *HR* Heparin 5,000 UNIT/ML VIAL SQ SCH (05:08)
[2018-02-16] MEDS: Ringers Solution, Lactated 1,000 ML IVC SCH (05:48)
[2018-02-16] MEDS: Insulin LISPRO 300 UNITS/3 ML VIAL SQ SCH ×2 (08:52→12:48)
[2018-02-16] MEDS: Aspirin Enteric Coated 81 MG Tablet PO SCH (10:13)
[2018-02-16] MEDS: Sennosides/Docusate Sodium TABLET PO SCH (10:13)
[2018-02-16] MEDS: Cyanocobalamin (B-12) 1,000 MCG TABLET PO SCH (10:16)
[2018-02-16 12:10] VITALS: BP 141/67
--- NOTE | 2018-02-16 13:52 | Discharge Summary ---
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 She was treated with IV fluids with improvement in her renal function and improvement in her hypercalcemia. She also received calcitonin and zoledronic acid. Her calcium levels have improved but she does have an elevated PTH and would need follow-up with endocrinology after discharge. She was also suspected of having a urinary tract infection however urinalysis and cultures have been negative. She does have underlying Alzheimer's dementia and resides at correction. She is clinically stable to be discharged back to skilled rehabilitation. She will follow-up with oncology at [facility] for further management of her abnormal lung lesion. I am stopping her vitamin D on account of her hypercalcemia Orders not resulted at time of discharge: Pending orders 02/16/18 13:39 Parathormone Related Peptide Routine Date of Encounter: 02/16/18 Time of Encounter: 13:49 - Discharge Diagnosis (1) CHELITA (acute kidney injury) Priority: Primary Status: Acute (2) Hypercalcemia Priority: Secondary Status: Acute (3) Urinary tract infection Priority: Secondary Status: Ruled-out Qualifiers: Urinary tract infection type: acute cystitis Hematuria presence: with hematuria Qualified Code(s): N30.01 - Acute cystitis with hematuria (4) DM type 2 (diabetes mellitus, type 2) Priority: Secondary Status: Chronic Qualifiers: Diabetes mellitus chcf insulin use: without superintendent container terminal use Diabetes mellitus complication status: without complication Qualified Code(s): E11.9 - Type 2 diabetes mellitus without complications (5) Hypertension Priority: Secondary Status: Chronic Qualifiers: Hypertension type: essential hypertension Qualified Code(s): I10 - Essential (primary) hypertension (6) Anxiety and depression Priority: Secondary Status: Chronic (7) Mass of upper lobe of right lung Priority: Secondary Status: Acute (8) Alzheimer's dementia Priority: Secondary Status: Chronic Qualifiers: Alzheimer's disease onset: unspecified onset Dementia behavioral disturbance: without behavioral disturbance Qualified Code(s): G30.9 - Alzheimer's disease, unspecified; F02.80 - Dementia in other diseases classified elsewhere without behavioral disturbance (9) COPD (chronic obstructive pulmonary disease) Priority: Secondary Status: Chronic Qualifiers: COPD type: unspecified COPD Qualified Code(s): J44.9 - Chronic obstructive pulmonary disease, unspecified (10) 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 She was treated with IV fluids with improvement in her renal function and improvement in her hypercalcemia. She also received calcitonin and zoledronic acid. Her calcium levels have improved but she does have an elevated PTH and would need follow-up with endocrinology after discharge. She was also suspected of having a urinary tract infection however urinalysis and cultures have been negative. She does have underlying Alzheimer's dementia and resides at correction. She is clinically stable to be discharged back to skilled rehabilitation. She will follow-up with oncology at [facility] for further management of her abnormal lung lesion. I am stopping her vitamin D on account of her hypercalcemia Discharge discussed with: patient, nurse - Time Spent with Patient Total time spent providing and/or coordinating discharge services: Greater than 30 minutes (35 min) - Discharge Medications Prescriptions: clonazePAM [Klonopin] 1 mg PO BID 5 Days #10 tablet Home Medications: Aspirin [Adult Aspirin] 81 mg PO DAILY 01/25/18 [History] Atorvastatin [Lipitor] 40 mg PO HS 01/25/18 [History] Cyanocobalamin (Vitamin B-12) [B-12] 2,500 mcg SL DAILY 01/25/18 [History] Donepezil HCl [Aricept] 5 mg PO HS 01/25/18 [History] Metoprolol Tartrate [Lopressor] 25 mg PO DAILY 01/25/18 [History] Omeprazole [PriLOSEC] 20 mg PO BID 01/25/18 [History] Ondansetron ODT [Zofran ODT] 4 mg SL Q6H PRN 02/11/18 [History] Potassium Chloride [Klor-Con 10] 10 meq PO DAILY 02/11/18 [History] Sennosides/Docusate Sodium [Senna Plus] 2 each PO BID PRN #60 tablet 02/16/18 [ Rx] clonazePAM [Klonopin] 1 mg PO BID 5 Days #10 tablet 02/16/18 [Rx] Allergies/Adverse Reactions: 3 Allergy/AdvReac Type Severity Reaction Status Date / Time No Known Allergies Allergy Verified 01/25/18 19:31 Date of admission: 02/11/18 23:38 Primary care physician: Geovanni Payton MD Consults: 02/12/18 00:03 Consult to Physical Therapy [CONS] Routine Comment: Evaluate, develop and implement POC Reason for Consult: weakness Does patient have active BEDREST order?: No Is patient medically & hemodynamically stable?: Yes Patient assessed for mobility or mobilized this visit?: No Consult to Car Hop [CONS] Routine Reason for SW Consult: Patient from SNF after recent hospital discharge at [place], unable to live with marta anymore 02/12/18 03:19 Consult to Oncology [CONS] Routine Consulting Provider: [facility] Reason for Consult: Hypercalcemia, right lung mass Time Notified: 08:00 Call Completed: Yes Discharging clinician: Chad Clay Anticipated date of discharge: 02/16/18 - Constitutional Vitals: Temp Pulse Resp BP Pulse Ox 98.9 F 60 12 141/67 100 02/16/18 12:08 02/16/18 12:08 02/16/18 12:08 02/16/18 12:08 02/16/18 12:08 General appearance: Present: cooperative, A&O X 2, pleasant, no acute distress, answers questions appropriately - Respiratory Respiratory exam: Present: CTAB. Absent: accessory muscle use, rales, rhonchi, wheezes - Cardiovascular Cardiovascular exam: Present: RRR, +S1, +S2. Absent: diastolic murmur, gallop, rubs, systolic murmur - GI/Abdominal GI/Abdominal exam: Present: normal bowel sounds, soft, no peritoneal signs. Absent: distended, tenderness - Extremities Exam Extremities exam: Present: warm, radial pulses palpable and symmetrical. Absent : calf tenderness, cyanotic, pedal edema - Patient Status Disposition: Transfer SNF Functional capacity at discharge: uses cane/walker Overall status at discharge: patient is progressing back to baseline - Discharge Instructions Follow Up With: Geovanni Payton MD [Primary Care Provider] - (in 1-2 weeks) Kenya Healy MD [Partnered Physician] - 04/07/18 9:00 am (Recommended f/u in 1-2 weeks for hypercalcemia/ Hyperparathyroidism Pt has a new pt appointment at this time, if Dr Payton would like her to be seen soon please have Dr Payton call to schedule a sooner appointment ) Severino Lua MD [Partnered Physician] - 02/21/18 8:15 am () - Diet and Activity Activity: as per physical therapy Diet: advance to your usual diet
--- NOTE | 2018-02-16 13:58 | Physician Discharge Referral ---
ExtendedCare Referral Info Provider in Charge after Transfer: PCP Institutional Level of Care: Skilled - Diagnosis (1) CHELITA (acute kidney injury) Priority: Primary Status: Acute (2) Hypercalcemia Priority: Secondary Status: Acute (3) Urinary tract infection Priority: Secondary Status: Ruled-out (4) DM type 2 (diabetes mellitus, type 2) Priority: Secondary Status: Chronic (5) Hypertension Priority: Secondary Status: Chronic (6) Anxiety and depression Priority: Secondary Status: Chronic (7) Mass of upper lobe of right lung Priority: Secondary Status: Acute (8) Alzheimer's dementia Priority: Secondary Status: Chronic (9) COPD (chronic obstructive pulmonary disease) Priority: Secondary Status: Chronic (10) 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 Priority: Secondary Status: Chronic (11) HLD (hyperlipidemia) Priority: Secondary Status: Chronic (12) Anemia Priority: Secondary Status: Chronic (13) Vertigo Priority: Secondary Status: Acute (14) DVT prophylaxis Priority: Secondary Status: Acute Prognosis: Fair Aware of Diagnosis: Patient Aware of Prognosis: Patient - Transfer Medications Prescriptions: clonazePAM [Klonopin] 1 mg PO BID 5 Days #10 tablet Home Medications: Aspirin [Adult Aspirin] 81 mg PO DAILY 01/25/18 [History] Atorvastatin [Lipitor] 40 mg PO HS 01/25/18 [History] Cyanocobalamin (Vitamin B-12) [B-12] 2,500 mcg SL DAILY 01/25/18 [History] Donepezil HCl [Aricept] 5 mg PO HS 01/25/18 [History] Metoprolol Tartrate [Lopressor] 25 mg PO DAILY 01/25/18 [History] Omeprazole [PriLOSEC] 20 mg PO BID 01/25/18 [History] Ondansetron ODT [Zofran ODT] 4 mg SL Q6H PRN 02/11/18 [History] Potassium Chloride [Klor-Con 10] 10 meq PO DAILY 02/11/18 [History] Sennosides/Docusate Sodium [Senna Plus] 2 each PO BID PRN #60 tablet 02/16/18 [ Rx] clonazePAM [Klonopin] 1 mg PO BID 5 Days #10 tablet 02/16/18 [Rx] Allergies/Adverse Reactions: 3 Allergy/AdvReac Type Severity Reaction Status Date / Time No Known Allergies Allergy Verified 01/25/18 19:31 - Respiratory Orders Smoking Cessation: Smoking cessation has been advised. For more information, call the [place] Tobacco Quit Line at 6-788-DAGQ-NOW. - Ancillary Orders May consult with Dentist, Public Works Supervisor, Large Animal Veterinarian PRN - Advance Directives Code Status: Full Code - Mobility Orders Other (per PT) - Rehabiliation Orders Rehab Potential: Fair Rehab Orders: Evaluation for Physical Therapy, Evaluation for Occupational Therapy - Diet Orders Cardiac CERTIFICATION: I certify that the transfer of the above named patient to an Extended Care Facility is necessary for the continuing treatment of the diagnosis listed. The above information is true and accurate reflection of patient's current condition. Confidential - Redisclosure prohibited without a patient's written consent.
== END 2018-02-16 16:21 | DRG 683 ==
LOC: 2ANU → SUATTDRO 23:38 → 2SOUTHHOLD 02-14 02:23
PROVIDERS: ADMIT Internal Medicine; ATTEND Internal Medicine

== ENCOUNTER 2019-02-20 11:38 | Inpatient (IN) ==
[2019-02-20] MEDS ORDERED: 0.9 % Sodium Chloride 1,000 ML IV ONE (12:54)
[2019-02-20 13:27] LABS: Basophils % 0.4 %; Eosinophils % 0.6 %; Hematocrit 38.3 % (35.3-44.9); Hemoglobin 12.1 g/dL (11.5-15.4); Immature Granulocytes % 0.2 % (0-4); Lymphocytes # 0.9 K/mcL (0.6-4.6); Mean Corpuscular HGB Conc 31.6 g/dL (31.6-35.5); Mean Corpuscular Hemoglobin 28.7 pg (28.0-33.3); Mean Platelet Volume 10.2 fL (9.4-12.4); Monocytes # 0.3 K/mcL (0.0-1.3); Monocytes % 5.5 %; Neutrophils # 4.1 K/mcL (1.6-8.9); Platelet Count 194 K/mcL (140-400); Red Blood Count 4.21 M/mcL (3.82-4.97); Red Cell Distribution Width 12.9 % (11.5-14.5); Segmented Neutrophils % 77.3 %; White Blood Count 5.3 K/mcL (4.3-11.1)
[2019-02-20 13:49] LABS: Alanine Aminotransferase 9 Units/L (7-52); Albumin 4.5 g/dL (3.5-5.7); Albumin/Globulin Ratio 1.8 (1.1-2.2); Alkaline Phosphatase 47 Units/L (34-104); Amylase 43 Units/L (29-103); Aspartate Amino Transferase 16 Units/L (13-39); BUN/Creatinine Ratio 16 (6-26); Bilirubin,Direct 0.1 mg/dL (0.0-0.2); Bilirubin,Indirect 0.3 mg/dL (0.0-1.2); Bilirubin,Total 0.4 mg/dL (0.3-1.0); Blood Urea Nitrogen 18 mg/dL (8-23); Calcium 11.2 mg/dL (8.6-10.3); Carbon Dioxide 25 mEq/L (23-29); Chloride 104 mEq/L (98-107); Globulin 2.5 g/dL (2.4-3.5); Glucose 41 mg/dL (70-105); Lipase 33 Units/L (11-82); Osmolality,Calculated 287 (280-300); Potassium 5.1 mEq/L (3.5-5.1); Sodium 139 mEq/L (136-145); eGFR For African Americans 57 (> 60); eGFR For Non-African Americans 47 (> 60)
[2019-02-20 14:02] LABS: Thyroid Stimulating Hormone 1.547 mcIU/mL (0.340-5.600)
[2019-02-20 15:42] LABS: Bilirubin,Urine Negative (Negative); Blood,Urine Negative (Negative); Clarity,Urine Clear (Clear); Color,Urine Yellow (Yellow); Glucose,Urine (UA) Normal (Normal); Ketones,Urine >=160 mg/dL (Negative); Leukocyte Esterase,Urine Trace (Negative); Nitrite,Urine Negative (Negative); PH,Urine 5.5 pH Units (5.0-8.0); Protein,Urine Negative (Neg-Trace); Specific Gravity,Urine 1.019 (1.010-1.025); Urobilinogen,Urine Normal (Normal)
[2019-02-20 15:44] LABS: Bacteria,Urine None Seen per hpf (None-Few); Hyaline Casts,Urine None Seen per lpf (None-Few); RBC,Urine 0-3 per hpf (0-3); Squamous Epithelial Cell,Urine Many per lpf (None-Few)
[2019-02-20 16:27] LABS: Troponin I < 0.03 ng/mL (< 0.04)
[2019-02-20] MEDS ORDERED: Naloxone 0.4 MG/ML INJ IVP PRN (17:50)
[2019-02-20] MEDS ORDERED: Ondansetron ODT 4 MG TAB.RAPDIS SL PRN (17:50)
[2019-02-20] MEDS ORDERED: Acetaminophen 325 MG TABLET PO PRN (17:50)
[2019-02-20] MEDS ORDERED: Sennosides/Docusate Sodium TABLET PO PRN (17:52)
[2019-02-20] MEDS ORDERED: Nitroglycerin 0.4 MG TAB.SUBL SL PRN (17:52)
[2019-02-20] MEDS ORDERED: Dextrose Gel 15 GM/37.5 ML TUBE PO PRN ×2 (18:06)
[2019-02-20] MEDS ORDERED: *HR* Dextrose 50 % in Water (Syg) 50 ML SYRINGE IVP PRN (18:06)
[2019-02-20] MEDS ORDERED: D5% in Water 1,000 ML IVC PRN (18:06)
[2019-02-20] MEDS: clonazePAM 1 MG TABLET PO SCH (18:50)
[2019-02-20] MEDS: D5% in 0.45% NACL 1,000 ML IVC SCH (18:51)
[2019-02-20] MEDS: Lactobacillus 1 EACH CAP.SPRINK PO SCH (22:15)
[2019-02-20] MEDS: Sucralfate 1 GM TABLET PO SCH (22:15)
[2019-02-21] MEDS: D5% in 0.45% NACL 1,000 ML IVC SCH (04:47)
[2019-02-21] MEDS: Sucralfate 1 GM TABLET PO SCH ×4 (06:55→20:50)
[2019-02-21] MEDS: Aspirin Enteric Coated 81 MG Tablet PO SCH (08:34)
[2019-02-21] MEDS: Lactobacillus 1 EACH CAP.SPRINK PO SCH ×2 (08:34→20:50)
[2019-02-21] MEDS: ARIPiprazole 5 MG TABLET PO SCH (08:34)
[2019-02-21] MEDS: Magnesium Oxide 400 MG TABLET PO SCH (08:34)
[2019-02-21 10:16] LABS: Basophils % 0.2 %; Eosinophils # 0.1 K/mcL (0.0-0.6); Eosinophils % 1.5 %; Hemoglobin 10.9 g/dL (11.5-15.4); Immature Granulocytes % 0.2 % (0-4); Lymphocytes # 0.7 K/mcL (0.6-4.6); Lymphocytes % 16.7 %; Mean Corpuscular HGB Conc 32.1 g/dL (31.6-35.5); Mean Corpuscular Hemoglobin 29.1 pg (28.0-33.3); Mean Corpuscular Volume 90.7 fL (83.0-100.0); Mean Platelet Volume 10.3 fL (9.4-12.4); Monocytes # 0.3 K/mcL (0.0-1.3); Platelet Count 140 K/mcL (140-400); Red Blood Count 3.75 M/mcL (3.82-4.97); Red Cell Distribution Width 12.9 % (11.5-14.5); Segmented Neutrophils % 74.4 %
[2019-02-21 10:36] LABS: BUN/Creatinine Ratio 16 (6-26); Blood Urea Nitrogen 14 mg/dL (8-23); Calcium 10.5 mg/dL (8.6-10.3); Carbon Dioxide 25 mEq/L (23-29); Chloride 106 mEq/L (98-107); Glucose 163 mg/dL (70-105); Osmolality,Calculated 292 (280-300); Potassium 4.4 mEq/L (3.5-5.1); Sodium 139 mEq/L (136-145); eGFR For African Americans > 60 (> 60); eGFR For Non-African Americans > 60 (> 60)
[2019-02-21] MEDS: clonazePAM 1 MG TABLET PO SCH (18:09)
[2019-02-21] MEDS: *HR* Heparin 5,000 UNIT/ML VIAL SQ SCH (18:11)
[2019-02-22] MEDS: *HR* Heparin 5,000 UNIT/ML VIAL SQ SCH ×2 (05:27→15:57)
[2019-02-22 05:35] LABS: Hemoglobin 10.3 g/dL (11.5-15.4); Mean Corpuscular HGB Conc 32.2 g/dL (31.6-35.5); Mean Corpuscular Hemoglobin 28.6 pg (28.0-33.3); Mean Corpuscular Volume 88.9 fL (83.0-100.0); Mean Platelet Volume 9.9 fL (9.4-12.4); Platelet Count 128 K/mcL (140-400); Red Cell Distribution Width 12.9 % (11.5-14.5); White Blood Count 4.3 K/mcL (4.3-11.1)
[2019-02-22 05:52] LABS: BUN/Creatinine Ratio 11 (6-26); Blood Urea Nitrogen 9 mg/dL (8-23); Calcium 10.5 mg/dL (8.6-10.3); Carbon Dioxide 26 mEq/L (23-29); Chloride 107 mEq/L (98-107); Glucose 103 mg/dL (70-105); Osmolality,Calculated 295 (280-300); Potassium 3.8 mEq/L (3.5-5.1); Sodium 143 mEq/L (136-145); eGFR For African Americans > 60 (> 60); eGFR For Non-African Americans > 60 (> 60)
[2019-02-22] MEDS: Sucralfate 1 GM TABLET PO SCH ×4 (09:22→21:52)
[2019-02-22] MEDS: Magnesium Oxide 400 MG TABLET PO SCH (09:22)
[2019-02-22] MEDS: Aspirin Enteric Coated 81 MG Tablet PO SCH (09:23)
[2019-02-22] MEDS: Lactobacillus 1 EACH CAP.SPRINK PO SCH ×2 (09:23→21:53)
[2019-02-22] MEDS: ARIPiprazole 5 MG TABLET PO SCH (09:23)
[2019-02-22] MEDS: clonazePAM 1 MG TABLET PO SCH (17:31)
[2019-02-23] MEDS: *HR* Heparin 5,000 UNIT/ML VIAL SQ SCH ×2 (05:45→09:35)
[2019-02-23 06:06] LABS: Hemoglobin 10.9 g/dL (11.5-15.4); Mean Corpuscular Hemoglobin 29.2 pg (28.0-33.3); Mean Corpuscular Volume 88.5 fL (83.0-100.0); Mean Platelet Volume 10.4 fL (9.4-12.4); Platelet Count 136 K/mcL (140-400); Red Blood Count 3.73 M/mcL (3.82-4.97); White Blood Count 3.4 K/mcL (4.3-11.1)
[2019-02-23 06:28] LABS: BUN/Creatinine Ratio 9 (6-26); Blood Urea Nitrogen 7 mg/dL (8-23); Calcium 10.5 mg/dL (8.6-10.3); Carbon Dioxide 28 mEq/L (23-29); Chloride 106 mEq/L (98-107); Glucose 93 mg/dL (70-105); Osmolality,Calculated 296 (280-300); Potassium 3.8 mEq/L (3.5-5.1); Sodium 144 mEq/L (136-145); eGFR For African Americans > 60 (> 60); eGFR For Non-African Americans > 60 (> 60)
[2019-02-23] MEDS: Aspirin Enteric Coated 81 MG Tablet PO SCH (10:00)
[2019-02-23] MEDS: Magnesium Oxide 400 MG TABLET PO SCH (10:00)
[2019-02-23] MEDS: ARIPiprazole 5 MG TABLET PO SCH (10:00)
[2019-02-23] MEDS: Lactobacillus 1 EACH CAP.SPRINK PO SCH ×2 (10:00→20:37)
[2019-02-23] MEDS: Sucralfate 1 GM TABLET PO SCH ×4 (10:06→20:37)
[2019-02-23] MEDS: clonazePAM 1 MG TABLET PO SCH (16:48)
[2019-02-24] MEDS: *HR* Heparin 5,000 UNIT/ML VIAL SQ SCH (05:13)
[2019-02-24 07:03] VITALS: BP 146/76
[2019-02-24] MEDS: Sucralfate 1 GM TABLET PO SCH (07:35)
[2019-02-24] MEDS: ARIPiprazole 5 MG TABLET PO SCH (07:35)
[2019-02-24] MEDS: Magnesium Oxide 400 MG TABLET PO SCH (07:35)
[2019-02-24] MEDS: Lactobacillus 1 EACH CAP.SPRINK PO SCH (07:36)
[2019-02-24] MEDS: Aspirin Enteric Coated 81 MG Tablet PO SCH (07:36)
== END 2019-02-24 13:20 | DRG 641 ==
LOC: EMEROOARM 11:38 → 3BNU 11:38 → SUATTDRO 02-21 12:36
PROVIDERS: ADMIT Internal Medicine Nephrology; ATTEND Internal Medicine